=== PATIENT | male | born 1980 | race American Indian/Alaskan Native ===

== ENCOUNTER 2017-08-21 11:40 | Emergency (ER) | payer OTHER ==
[2017-08-21 11:47] VITALS: BP 126/82
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
== END 2017-08-21 14:45 | disposition home or self-care (01) ==
LOC: ED 11:40
DX: M54.6 Pain in thoracic spine (principal); M25.512 Pain in left shoulder; V87.7XXA Person injured in collision between other specified motor vehicles (traffic), initial encounter; Y93.89 Activity, other specified; Y99.8 Other external cause status; Y92.410 Unspecified street and highway as the place of occurrence of the external cause
CPT/HCPCS: 99282